=== PATIENT | male | born 1995 | race Two or more races ===

== ENCOUNTER 2018-12-17 12:40 | Emergency (ER) | payer BC ==
--- NOTE | 2018-12-17 13:24 | EDM.PDOC ---
ED HPI GENERAL MEDICAL PROBLEM - General Chief Complaint: Syncope Stated Complaint: BLACKING OUT/ IRREGULAR BALANCE Time Seen by Provider: 12/17/18 13:30 Source of Information: Reports: Patient History Limitations: Reports: No Limitations - History of Present Illness INITIAL COMMENTS - FREE TEXT/NARRATIVE: 23 y/o male presents to ER with cc syncopal episode. He states he got out of his truck and was walking around it when he "just blacked out." He denies any headache, neck pain blurred vision. He denies drinking energy drinks, caffeine or recreational drugs. He does not have a history of sudden cardiac arrest in his family. His immunizations are up to date and his has been otherwise healthy. He does not have a PCP. Onset: Today, Sudden Onset Date: 12/17/18 Onset Time: 11:00 Duration: Resolved Prior to Arrival Severity: Mild Improves with: Reports: None Worsens with: Reports: None Associated Symptoms: Denies: Chest Pain, Cough, Fever/Chills, Headaches, Nausea/ Vomiting, Rash, Shortness of Breath Treatments TELEPHONE RECORDER: Reports: Other (see below) Other Treatments TELEPHONE RECORDER: fluids - Related Data Allergies Allergy/AdvReac Type Severity Reaction Status Date / Time diphenhydramine Allergy Hives Verified 12/17/18 13:00 [From Benadryl] Home Meds: Home Meds . [No Known Home Meds] 12/17/18 [History] Past Medical History Musculoskeletal History: Reports: Other (See Below) Other Musculoskeletal History: right miniscus shaved - Past Surgical History GI Surgical History: Reports: Appendectomy Social & Family History - Tobacco Use Smoking Status *Q: Current Every Day Smoker Years of Tobacco use: 2 Packs/Tins Daily: 0.2 - Caffeine Use Caffeine Use: Reports: Soda - Recreational Drug Use Recreational Drug Use: No ED ROS GENERAL - Review of Systems Review Of Systems: See Below Constitutional: Denies: Fever, Chills HEENT: Reports: No Symptoms Respiratory: Denies: Shortness of Breath Cardiovascular: Denies: Chest Pain Endocrine: Denies: Fatigue GI/Abdominal: Reports: No Symptoms : Reports: No Symptoms Musculoskeletal: Denies: Neck Pain, Back Pain Skin: Reports: No Symptoms Neurological: Reports: Syncope. Denies: Confusion, Dizziness, Headache, Numbness, Difficulty Walking, Weakness Psychiatric: Reports: No Symptoms Hematologic/Lymphatic: Reports: No Symptoms Immunologic: Reports: No Symptoms - Physical Exam Exam: See Below Exam Limited By: No Limitations General Appearance: Alert, WD/WN, No Apparent Distress Eye Exam: Bilateral Eye: EOMI, PERRL Ears: Normal External Exam, Normal Canal, Hearing Grossly Normal, Normal TMs Nose: Normal Inspection, Normal Mucosa, No Blood Throat/Mouth: Normal Inspection, Normal Lips, Normal Teeth, Normal Gums, Normal Oropharynx, No Airway Compromise Head Exam: Atraumatic, Normocephalic Neck: Normal Inspection, Supple, Non-Tender, Full Range of Motion Respiratory/Chest: No Respiratory Distress, Lungs Clear, Normal Breath Sounds, No Accessory Muscle Use, Chest Non-Tender Cardiovascular: Normal Peripheral Pulses, Regular Rate, Rhythm, No Edema, No Gallop, No JVD, No Murmur, No Rub GI/Abdominal: Normal Bowel Sounds, Soft, Non-Tender, No Organomegaly, No Distention, No Abnormal Bruit, No Mass, Pelvis Stable Neuro Exam (Abbreviated): Alert, Oriented, CN II-XII Intact, Normal Cognition, Normal Gait, Normal Reflexes, No Motor/Sensory Deficits Back Exam: Normal Inspection, Full Range of Motion Extremities: Normal Inspection, Normal Range of Motion, Non-Tender, No Pedal Edema Psychiatric: Normal Affect, Normal Mood Skin Exam: Warm, Dry, Intact, Normal Color, No Rash EKG INTERPRETATION EKG Date: 12/17/18 Time: 13:03 Rhythm: NSR Rate (Beats/Min): 71 Course - Vital Signs Last Recorded V/S: Last Vital Signs Temp 97.6 F 12/17/18 13:04 Pulse 76 12/17/18 13:04 Resp 20 12/17/18 13:04 BP 124/78 12/17/18 13:04 Pulse Ox 100 12/17/18 13:04 Orthostatic Blood Pressure [ 108/73 Standing] Orthostatic Blood Pressure [ 116/79 Sitting] Orthostatic Blood Pressure [ 118/70 Supine] - Orders/Labs/Meds Orders: Active Orders 24 hr Category Date Time Status EKG Documentation Completion [RC] STAT Care 12/17/18 12:58 Active Orthostatic Vital Signs [RC] ASDIRECTED Care 12/17/18 13:00 Active Labs: Laboratory Tests 12/17/18 12/17/18 12/17/18 Range/Units 13:35 13:41 13:41 WBC 7.52 (4.23-9.07) K/mm3 RBC 5.56 (4.63-6.08) M/mm3 Hgb 16.7 (13.7-17.5) gm/L Hct 47.3 (40.1-51.0) % MCV 85.1 (79.0-92.2) fl MCH 30.0 (25.7-32.2) pg MCHC 35.3 (32.2-35.5) g/dl RDW Std Deviation 40.4 (35.1-43.9) fL Plt Count 201 (163-337) K/mm3 MPV 11.2 (9.4-12.3) fl Neut % (Auto) 66.9 (34.0-67.9) % Lymph % (Auto) 26.2 (21.8-53.1) % Winston % (Auto) 5.3 (5.3-12.2) % Eos % (Auto) 1.2 (0.8-7.0) Baso % (Auto) 0.3 (0.1-1.2) % Neut # (Auto) 5.03 (1.78-5.38) K/mm3 Lymph # (Auto) 1.97 (1.32-3.57) K/mm3 Winston # (Auto) 0.40 (0.30-0.82) K/mm3 Eos # (Auto) 0.09 (0.04-0.54) K/mm3 Baso # (Auto) 0.02 (0.01-0.08) K/mm3 Sodium 140 (136-145) mEq/L Potassium 3.6 (3.5-5.1) mEq/L Chloride 103 (98-107) mEq/L Carbon Dioxide 29 (21-32) mEq/L Anion Gap 11.6 (5-15) BUN 12 (7-18) mg/dL Creatinine 1.0 (0.7-1.3) mg/dL Est Cr Clr Drug Dosing 132.43 mL/min Estimated GFR (MDRD) > 60 (>60) mL/min BUN/Creatinine Ratio 12.0 L (14-18) Glucose 98 (74-106) mg/dL Calcium 8.9 (8.5-10.1) mg/dL Total Bilirubin 1.0 (0.2-1.0) mg/dL AST 21 (15-37) U/L ALT 38 (16-63) U/L Alkaline Phosphatase 96 (46-116) U/L CK-MB (CK-2) 0.5 (0-3.6) ng/ml Total Protein 8.0 (6.4-8.2) g/dl Albumin 4.2 (3.4-5.0) g/dl Globulin 3.8 gm/dL Albumin/Globulin Ratio 1.1 (1-2) Urine Opiates Screen Negative (IGNGPI=604) Ur Buprenorphine Scrn Negative (CUTOFF=10) Ur Oxycodone Screen Negative (QRW1FK=754) Urine Methadone Screen Negative (WPR8EG=741) Ur Propoxyphene Screen Negative (HUPPVA=591) Ur Barbiturates Screen Negative (THPKRM=034) Ur Tricyclics Screen Negative (EKJQHJ=120) Ur Phencyclidine Scrn Negative (CUTOFF=25) Ur Amphetamine Screen Negative (RCEJRB=054) U Methamphetamines Scrn Negative (ZVPXJV=618) U Benzodiazepines Scrn Negative (NIXVGE=719) U Cocaine Metab Screen Negative (BCJEFT=810) U Marijuana (THC) Screen Negative (CUTOFF=50) - Re-Assessments/Exams Free Text/Narrative Re-Assessment/Exam: 12/17/18 13:55 CT head reveals nothing acute. Chest x-ray reveals no acute findings. 12/17/18 14:20 WBC 7.52 RBC 5.56 H 7H 16.7/47.3 urine drug screen negative. 12/17/18 14:40 I will discharge home with instructions to follow up with his PCP for a 48 hour Holter monitor since he does not live here and is not able to stay. 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 I feel he is safe to return to work with no restrictions since all his studies were negative. I instructed him, if he started to develop symptoms of dizziness or fatigue he should stop working and not drive or operate machinery. He verbalized understanding and is comfortable with plan for discharge. Departure - Departure Time of Disposition: 14:43 Disposition: Home, Self-Care 01 Condition: Good Clinical Impression: Syncope Qualifiers: Syncope type: unspecified Qualified Code(s): R55 - Syncope and collapse - Discharge Information Instructions: Syncope, [id number] Referrals: PCP,None [Primary Care Provider] - Forms: ED Department Discharge, ED Return to Work/School Form Additional Instructions: you have been diagnosis with syncope. Your CT head was negative. Your chest x- ray and labs were unremarkable. I recommend you follow up with your PCP or preparation plant supervisor to have a Holter monitor and further evaluation. I feel you are safe to return to work since you studies were all negative. I can not find a reason for your syncopal event. If you develop symptoms including but not limited to dizziness, weakness or fatigue you should stop working. Return to the ER for any new or acute worsening symptoms. - My Orders Last 24 Hours: My Active Orders 12/17/18 12:58 EKG Documentation Completion [RC] STAT 12/17/18 13:00 Orthostatic Vital Signs [RC] ASDIRECTED - Assessment/Plan Last 24 Hours: My Active Orders 12/17/18 12:58 EKG Documentation Completion [RC] STAT 12/17/18 13:00 Orthostatic Vital Signs [RC] ASDIRECTED
--- NOTE | 2018-12-17 13:53 | CT ---
Head CT Technique: Multiple axial sections through the brain were obtained. Intravenous contrast was not utilized. Comparison: No prior intracranial imaging. Findings: Ventricles along with basal cisterns and sulci over the convexities are within normal limits for the patient's age. No abnormal parenchymal densities are seen. No evidence of intracranial hemorrhage. No midline shift or mass effect is seen. Bone window settings were reviewed which show no acute calvarial abnormality. Visualized sinuses are clear. Impression: 1. Nothing acute is appreciated on noncontrast head CT exam. Diagnostic code #1
--- NOTE | 2018-12-17 13:53 | CR ---
Chest: Two views of the chest were obtained. Comparison: No prior chest x-ray. Heart size and mediastinum are normal. Lungs are clear. Bony structures are unremarkable. Impression: 1. Nothing acute is appreciated on two-view chest x-ray. Diagnostic code #1
== END 2018-12-17 15:10 | disposition home or self-care (01) ==
LOC: JD.ED 12:40
DX: R55 Syncope and collapse (principal); F17.210 Nicotine dependence, cigarettes, uncomplicated; Z88.8 Allergy status to other drugs, medicaments and biological substances
CPT/HCPCS: 36415; 70450; 70450-26; 71046; 71046-26; 80053; 80306; 82553; 85025; 93005; 93010; 99284; 99284-25